=== PATIENT | male | born 1955 | race American Indian/Alaskan Native ===

== ENCOUNTER 2016-12-21 13:55 | Outpatient (CLI) | payer MEDICAID ==
--- NOTE | 2016-12-21 16:48 | XRay Report ---
Chest 2 views. Findings: The heart and pulmonary vessels are normal. The lungs are clear. There is no pleural fluid. The bony thorax and dorsal spine are unremarkable for age. Impression: No acute findings.
== END 2016-12-21 13:56 | disposition home or self-care (01) ==
LOC: XRAY 13:55
PROVIDERS: ATTEND Internal Medicine
DX: C61 Malignant neoplasm of prostate (principal); E11.8 Type 2 diabetes mellitus with unspecified complications
CPT/HCPCS: 71020; 93005; 93010